=== PATIENT | female | born 1950 ===

== ENCOUNTER 2018-02-02 07:19 | Day surgery (SDC) | payer MEDICARE ==
[2018-01-25 13:23] VITALS: BMI 21.0
[2018-02-02] MEDS ORDERED: ceFAZolin 1 gm in NS 1 GM/100 ML BAG IVPB ONE (10:06)
[2018-02-02] MEDS ORDERED: Clindamycin 600mg/50ml NS 600 MG/50 ML BAG IVPB ONE (10:07)
[2018-02-02] MEDS ORDERED: Lidocaine Hydrochloride 5 ML INJ ONE (10:07)
[2018-02-02] MEDS ORDERED: Midazolam 2 MG/2 ML VIAL ONE (10:07)
[2018-02-02] MEDS ORDERED: Propofol 10 mg/ml Inj (20 ML) ONE (10:08)
[2018-02-02] MEDS: Bupivacaine-Epi 0.5%-1:200,000 PF Inj IJ ONE ×2 (10:24→10:37)
--- NOTE | 2018-02-02 11:08 | PCM.SURG1 ---
Surgeon's Initial Post Op Note - Surgeon's Notes Surgeon: Dr. Moctezuma Forging Die Finisher: PGY1, Milo OMS3 Pre-Operative Diagnosis: Right breast mass Operative Findings: Needle localization. specimen sent to path. negative margins Post-Operative Diagnosis: as above Operation Performed: Right breast partial mastectomy with needle localization Specimen/Specimens Removed: Right breast mass Estimated Blood Loss: EBL {In ML}: 25 Blood Products Given: N/A Drains Used: No Drains Post-Op Condition: Good Date of Surgery/Procedure: 02/02/18 Time of Surgery/Procedure: 11:08
[2018-02-02] MEDS ORDERED: Oxycodone/Acetaminophen 5/325 mg Tab PO ONE (11:09)
[2018-02-02] MEDS ORDERED: HYDROmorphone 0.5 mg/0.5 ml ISec IVP PRN (11:11)
--- NOTE | 2018-02-02 12:05 | US ---
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 Informed consent was obtained. PROCEDURE: Wire localization using sonographic guidance was performed for the right breast 10 o'clock fibroepithelial lesion . The skin was prepped in the usual manner. 1 cc of lidocaine 1% was injected into the subcutaneous tissue at the access site to provide local anesthesia. A lateral approach was used with a 5 cm needle and wire. A wire was inserted into the targeted area under sonographic guidance. Post placement mammographic imaging demonstrates the thick segment of the wire appropriately located in the targeted area. IMPRESSION: Right breast wire localization was successful with no apparent post-procedure complications. X-ray of the surgical specimen demonstrates distal aspect of the wire, a biopsy marker clip, and mass. PATHOLOGY: Pending.
[2018-02-02 12:15] VITALS: O2SAT 100
[2018-02-02 12:26] VITALS: BP 160/66; PULSE 58; RESP 18; TEMP 97
[2018-02-02] MEDS ORDERED: Oxycodone/Acetaminophen 5/325 mg Tab ONE (12:31)
== END 2018-02-02 12:41 | disposition home or self-care (01) ==
LOC: C.SDS 07:19
PROVIDERS: ATTEND Surgery
DX: N63.10 Unspecified lump in the right breast, unspecified quadrant (principal)
CPT/HCPCS: 19281; 19301; 88307; J1885; J2250; J2405; J2704; J3010